=== PATIENT | male | born 1985 | race Caucasian/White ===

== ENCOUNTER 2017-04-03 11:36 | Emergency (ER) | payer OTHER ==
[~2017-04-03] VITALS: Ht 177.8 cm; Wt 83.9 kg
[2017-04-03] MEDS ORDERED: predniSONE 20 MG TAB PO ONE (13:00)
[2017-04-03] MEDS ORDERED: KETOROLAC 60 MG/2 ML VIAL (J1885) IM ONE (13:00)
[2017-04-03] MEDS ORDERED: MOBI7.5T10 PO (14:13)
[2017-04-03] MEDS ORDERED: PRED20TA PO (14:13)
[2017-04-03] MEDS ORDERED: ZANA4TAB PO (14:13)
[2017-04-03 14:20] VITALS: BP 124/74
--- NOTE | 2017-04-03 15:58 | REP ---
LUMBOSACRAL SPINE: REASON: Pain after trauma. PRIORS: None. FINDINGS: Five views of the lumbosacral spine show no acute fracture, dislocation or subluxation. The intervertebral disc spaces are symmetric and well maintained. There is no spondylolysis or spondylolisthesis. The pedicles are intact bilaterally and there is no destructive osseous lesion. IMPRESSION: Unremarkable lumbosacral spine series. Signed by Emeterio Bobby DO 04/04/2017 09:53 A
== END 2017-04-03 14:23 | disposition home or self-care (01) ==
LOC: M ED 12:42
DX: M54.5 Low back pain (principal); F17.210 Nicotine dependence, cigarettes, uncomplicated
CPT/HCPCS: 72110; 96372; 99282; J1885